=== PATIENT | female | born 1970 | race Caucasian/White ===

== ENCOUNTER 2017-02-28 14:12 | Emergency (ER) | payer SELFPAY ==
[2017-02-28] MEDS ORDERED: MORPHINE SULFATE 10 MG/ML INJ IV ONE ×4 (14:27→23:23)
--- NOTE | 2017-02-28 14:31 | ER Document Report ---
ED General - General Stated Complaint: SHORTNESS OF BREATH Notes: 46-year-old female with history of tobacco smoking and chronic bronchitis presents with right-sided chest and rib pain worse on inhalation for about 24 hours but is worsening. She hit her right chest while playing with her daughter last night had immediate pain but then woke up this morning with worsening shortness of breath after a coughing fit and increasing pain. She has been coughing up white sputum. Subjective fevers. Denies leg swelling long flights or external hormone use. No history of blood clots. I saw patient at the request of charge nurse that she met "sepsis criteria." TRAVEL OUTSIDE OF THE [place] IN LAST 30 DAYS: No - Related Data Allergies/Adverse Reactions: codeine [Codeine] Allergy (Intermediate, Verified 02/05/15 21:59) itching Past Medical History - Social History Smoking Status: Current Every Day Smoker Smoking Education Provided: Yes - The patient ED visit today was directly related to their abuse of tobacco. Family History: Reviewed & Not Pertinent GI Medical History: Reports: Hx Gastroesophageal Reflux Disease Psychiatric Medical History: Reports: Hx Attention Deficit Hyperactivity Disorder, Hx Depression Past Surgical History: Reports: Hx Section, Hx Orthopedic Surgery - KNEE SURGERY 2002, 2004 - Immunizations Immunizations up to date: Yes Hx Diphtheria, Pertussis, Tetanus Vaccination: Yes - 2005 Hx Pneumococcal Vaccination: 08/08/00 Review of Systems - Review of Systems Notes: REVIEW OF SYSTEMS GEN: Fever ENT: Denies sore throat, nasal discharge, ear pain EYES: Denies blurry vision, eye pain, discharge CV: Sided pleuritic chest pain RESP: Breath cough sputum GI: Denies abdominal pain, nausea, vomiting, diarrhea MSK: Denies joint pain/swelling, edema, SKIN: Denies rash, skin lesions LYMPH: Denies swollen glands/lymph nodes NEURO: Denies headache, focal weakness or numbness, dizziness PSYCH: Denies depression, suicidal or homicidal ideation PHYSICAL EXAMINATION General:To moderate respiratory distress Head: Atraumatic, normocephalic ENT: Mouth normal, oropharynx moist, no exudates or tonsillar enlargement Eyes: Conjunctiva normal, pupils equal, lids normal Neck: No JVD, supple, no guarding CVS: Normal rate, regular rhythm, no murmurs Resp: Moderate respiratory distress, shallow breathing, tachypnea, decreased breath sounds at right base. GI: Nondistended, soft, no tenderness to palpation, no rebound or guarding Ext: No deformities, no edema, normal range of motion in upper and lower ext Back: No CVA or midline TTP Skin: No rash, warm Lymphatic: No lymphadeopathy noted Neuro: Awake, alert. Face symmetric. GCS 15. Physical Exam - Vital signs Vitals: Pulse Ox 98 02/28/17 14:20 Course - Re-evaluation Re-evalutation: 02/28/17 14:30 Patient presents with right-sided pleuritic chest pain posttraumatic now with sputum fever tachycardia. Differential includes pneumonia, sepsis, pneumothorax , pneumomediastinum, rib contusion with splinting. Differential also includes 02/28/17 14:58 Reassessed patient. On further examination she has active track rodríguez on the right hand and does not attest to me that she is using heroin daily. Careful exam of the heart reveals a systolic murmur which she is not aware of. Chest x- ray looks clean but I will scan her for PE and she will be admitted for endocarditis rule out. Order vancomycin traction. In addition the patient attest to a reasonably heavy alcohol intake. I will give her Ativan for presumed alcohol withdrawal as well. Given that she has no clinical signs of heart failure or valve rupture I think she is appropriate to be admitted here for endocarditis rule out. 02/28/17 15:02 02/28/17 17:16 Vital signs are improved. Patient still requiring opioids for pain. Her CT does not show a pulmonary embolus but she does have some nodular densities and a pleural effusion concerning, in my opinion, for septic pulmonary emboli. She is already antibiotics. I do have some concern for heart failure given her CTs I will not give her a full 2 L of fluid. She was accepted by Dr. Pineda for attending Dr. Kilgore at [facility]. - Vital Signs Vital signs: Temp Pulse Resp BP Pulse Ox 25 H 115/85 98 02/28/17 15:03 02/28/17 15:03 02/28/17 14:22 - Laboratory Result Diagrams: 02/28/17 14:29 02/28/17 14:29 Laboratory results interpreted by me: 02/28/17 02/28/17 02/28/17 14:29 14:29 15:21 WBC 19.7 H RDW 15.4 H Seg Neutrophils % 83.5 H Lymphocytes % 9.3 L Absolute Neutrophils 16.5 H VBG pH 7.48 H VBG pCO2 32.7 L Sodium 134.7 L Carbon Dioxide 20 L BUN 5 L Glucose 143 H AST 43 H - Diagnostic Test Radiology reviewed: Image reviewed, Reports reviewed - Consults No standard instances Time consulted: 17:00 - Spoke with Dr. Girard, hospitalist who refused admission in the case that the patient needs cardiac surgery. Critical Care Note - Critical Care Note Total time excluding time spent on procedures (mins): 35 - The above patient is critically ill. Not including procedures, but including direct re-evaluations, speaking with patient and/or consultants, interpreting results, and documenting , I spent the total amount of minute listed listed above on critical care time
[2017-02-28 14:45] LABS: ABSOLUTE BASOPHILS # (AUTO) 0.1 10^3/uL (0.0-0.2); ABSOLUTE LYMPHOCYTES (AUTO) 1.8 10^3/uL (0.5-4.7); ABSOLUTE MONOCYTES (AUTO) 1.4 10^3/uL (0.1-1.4); ABSOLUTE NEUT (AUTO) 16.5 10^3/uL (1.7-8.2); BASOPHILS % (AUTO) 0.3 % (0-2); HEMATOCRIT 40.6 % (36.0-47.0); HEMOGLOBIN 13.9 g/dL (12.0-15.5); HGB HCT DIFFERENCE 1.1; LYMPHOCYTES % (AUTO) 9.3 % (13-45); MEAN CORPUSCULAR HEMOGLOBIN 27.8 pg (27.0-33.4); MEAN CORPUSCULAR HGB CONC 34.2 g/dL (32.0-36.0); MEAN CORPUSCULAR VOLUME 81 fl (80-97); MONOCYTES % (AUTO) 6.9 % (3-13); RED BLOOD COUNT 4.99 10^6/uL (3.72-5.28); RED CELL DISTRIBUTION WIDTH 15.4 % (11.5-14.0); SEGMENTED NEUTROPHILS % (AUTO) 83.5 % (42-78); WHITE BLOOD COUNT 19.7 10^3/uL (4.0-10.5)
[2017-02-28 14:49] LABS: PROTHROMBIN TIME 14.1 SEC (11.4-15.4)
[2017-02-28] MEDS ORDERED: NORMAL SALINE 1000 ML 1,000 ML IV ONE (14:49)
[2017-02-28] MEDS ORDERED: VANCOMYCIN HCL INJ 1000 MG VIAL IV ONE (15:00)
[2017-02-28] MEDS ORDERED: CEFTRIAXONE 1 GM/D5W RTU 50 ML IV ONE (15:00)
[2017-02-28] MEDS ORDERED: LORAZEPAM INJ 2 MG/1 ML VIAL IV ONE (15:01)
[2017-02-28 15:06] LABS: ALANINE AMINOTRANSFERASE 49 U/L (9-52); ALKALINE PHOSPHATASE 119 U/L (38-126); ANION GAP 13 (5-19); ASPARTATE AMINO TRANSFERASE 43 U/L (14-36); BILIRUBIN,DIRECT 0.4 mg/dL (0.0-0.4); BLOOD UREA NITROGEN 5 mg/dL (7-20); CALCIUM 8.8 mg/dL (8.4-10.2); CARBON DIOXIDE 20 mmol/L (22-30); CHLORIDE 102 mmol/L (98-107); CREATININE RESULT 0.57 mg/dL (0.52-1.25); GLUCOSE 143 mg/dL (75-110); POTASSIUM 3.9 mmol/L (3.6-5.0); SODIUM 134.7 mmol/L (137-145); TOTAL PROTEIN 7.6 g/dL (6.3-8.2)
--- NOTE | 2017-02-28 15:25 | RADIOLOGY REPORT (SQ) ---
EXAM DESCRIPTION: CHEST SINGLE VIEW COMPLETED DATE/TIME: 02/28/2017 3:08 pm REASON FOR STUDY: bed 13 sepsis protocol COMPARISON: 09/19/2014 EXAM PARAMETERS: NUMBER OF VIEWS: One view. TECHNIQUE: Single frontal radiographic view of the chest acquired. RADIATION DOSE: NA LIMITATIONS: None. FINDINGS: LUNGS AND PLEURA: No opacities, masses or pneumothorax. No pleural effusion. MEDIASTINUM AND HILAR STRUCTURES: No masses. Contour normal. HEART AND VASCULAR STRUCTURES: Heart normal in size. Normal vasculature. BONES: No acute findings. HARDWARE: None in the chest. OTHER: No other significant finding. IMPRESSION: NO ACUTE RADIOGRAPHIC FINDING IN THE CHEST. TECHNICAL DOCUMENTATION: JOB ID: [id number]
[2017-02-28 15:35] LABS: VENOUS BLOOD BASE EXCESS 1.3 mmol/L; VENOUS BLOOD PCO2 32.7 mmHg (35-63); VENOUS BLOOD PH 7.48 (7.30-7.42)
[2017-02-28] MEDS ORDERED: FENTANYL CITRATE INJ/PF 100 MCG/2 ML AMPUL IV ONE (16:07)
--- NOTE | 2017-02-28 16:49 | RADIOLOGY REPORT (SQ) ---
EXAM DESCRIPTION: CTA CHEST COMPLETED DATE/TIME: 02/28/2017 4:22 pm REASON FOR STUDY: tachy, pl CP, r/o PE COMPARISON: 11/18/2013. TECHNIQUE: CT scan of the chest performed using helical scanning technique with dynamic intravenous contrast injection. Images reviewed with lung, soft tissue and bone windows. Reconstructed coronal and sagittal MPR images reviewed. Additional 3 dimensional post-processing performed to develop Maximal Intensity Projection images (LA P). All images stored on PACS. All CT scanners at this facility use dose modulation, iterative reconstruction, and/or weight based d osing when appropriate to reduce radiation dose to as low as reasonably achievable (ALARA). [facility]: Dose Right [facility]: CareDose [facility]: Dose Right [facility]: Teradose 4D [facility]: [employer] CONTRAST TYPE AND DOSE: contrast/concentration: Isovue 370.00 mg/ml; Total Contrast Delivered: 66.0 ml; Total Saline Delivered: 96.0 ml RENAL FUNCTION: BUN 5 creatinine 0.57. RADIATION DOSE: Up-to-date CT equipment and radiation dose reduction techniques were employed. CTDIv ol: 14.3 - 19.8 mGy. DLP: 460 mGy-cm. . LIMITATIONS: None. FINDINGS: LUNGS AND PLEURA: Minimal right pleural effusion. 7 mm nodular density in the subpleural posterior right lower lobe (series 4, image 32). 5 mm nodular density in the subpleural left upper l obe (series 4, image 44). No lobar infiltrates. AORTA AND GREAT VESSELS: No aneurysm or dissection. HEART: No pericardial effusion. PULMONARY ARTERIES: No emboli visualized in the main pulmonary arteries or the segmental branches. HILAR AND MEDIASTINAL STRUCTURES: No identified masses or abnormal nodes. HARDWARE: None in the chest. UPPER ABDOMEN: No significant findings. Limited exam. THYROID AND OTHER SOFT TISSUES: No masses. No adenopathy. BONES: No acute or significant finding. 3D MIPS: Confirm above findings. OTHER: No other significant finding. IMPRESSION: 1. NORMAL CTA OF THE CHEST. NO PULMONARY EMBOLI. 2. MINIMAL RIGHT PLEURAL EFFUSION. SMALL NODULAR DENSITIES DESCRIBED ABOVE. RECOMMEND FOLLOW-UP CT IN 3-6 MONTHS. COMMENT: [facility] CRITERIA FOR FOLLOW-UP OF PULMONARY NODULES Incidentally detected new nodules in persons 35 or older. HIGH RISK: History of smoking or other known risk factors. 6-8mm multiple solid nodules: LOW RISK: CT 3-6 mo; then consider CT 18-24 mo. HIGH RISK: CT 3-6 mo; t hen CT 18-24 mo. TECHNICAL DOCUMENTATION: JOB ID: [id number] Quality ID # [id number]: Final reports with documentation of one or more dose reduction techniques (e.g., Au tomated exposure control, adjustment of the mA and/or kV according to patient size, use of iterative reconstruction technique) 2010 [employer]- All Rights Reserved
[2017-02-28] MEDS ORDERED: MORPHINE SULFATE IR 30 MG TABLET PO ONE (18:05)
[2017-02-28 18:23] LABS: APPEARANCE,URINE CLEAR; BILIRUBIN,URINE NEGATIVE (NEGATIVE); GLUCOSE, URINE NEGATIVE (NEGATIVE); KETONES,URINE NEGATIVE (NEGATIVE); LEUKOCYTE ESTERASE,URINE NEGATIVE (NEGATIVE); NITRITE,URINE POSITIVE (NEGATIVE); PROTEIN,URINE NEGATIVE (NEGATIVE); URINE SPECIFIC GRAVITY 1.054; UROBILINOGEN,URINE NEGATIVE mg/dL (<2.0)
[2017-02-28] MEDS ORDERED: MORPHINE SULFATE IR 15 MG TABLET PO ONE (18:28)
[2017-02-28] MEDS ORDERED: KETOROLAC TROMETHAMINE INJ/PF 30 MG/1 ML SDV IV ONE (21:33)
[2017-02-28] MEDS ORDERED: ACETAMINOPHEN 325 MG TABLET PO ONE (21:42)
[2017-03-01] MEDS ORDERED: NICOTINE 14 MG/24 HR PATCH.TD24 TD ONE (01:09)
[2017-03-01] MEDS ORDERED: VANCOMYCIN HCL INJ 1000 MG VIAL IV ONE (03:00)
[2017-03-01] MEDS: MORPHINE SULFATE 10 MG/ML INJ IV PRN ×4 (03:58→10:05)
[2017-03-01] MEDS ORDERED: KETOROLAC TROMETHAMINE INJ/PF 30 MG/1 ML SDV IV ONE (11:01)
[2017-03-01] MEDS ORDERED: TRAMADOL HCL 50 MG TABLET PO ONE (12:33)
--- NOTE | 2017-03-01 12:51 | EKG REPORT ---
SEVERITY:- BORDERLINE ECG - SINUS TACHYCARDIA PROBABLE LEFT ATRIAL ABNORMALITY : Confirmed by: Elisa Montague MD 01-Mar-2017 12:50:49
[2017-03-01] MEDS ORDERED: MORPHINE SULFATE 10 MG/ML INJ IV PRN (19:38)
[2017-03-01 20:01] VITALS: BP 154/95
== END 2017-03-01 20:10 ==
LOC: ER 14:12
DX: I26.90 Septic pulmonary embolism without acute cor pulmonale (principal); R07.81 Pleurodynia; R06.02 Shortness of breath; R01.1 Cardiac murmur, unspecified; R05 Cough; R00.0 Tachycardia, unspecified; R50.9 Fever, unspecified; F17.210 Nicotine dependence, cigarettes, uncomplicated; Z88.5 Allergy status to narcotic agent; Z72.89 Other problems related to lifestyle
CPT/HCPCS: 93005; 96376; 99291; 96375; 96365; 96366; 96368; 36415; 87040; 87086; 85025; 85610; 87088; 80053; 81001; 84484; 87186; 82803; 83605; 71010; 71275; 93010; J3010; J1885 ×2; J2270 ×2; J2060; J7030; J3370 ×2; J0696

== ENCOUNTER 2018-10-11 16:01 | Emergency (ER) | payer SELFPAY ==
--- NOTE | 2018-10-11 17:19 | ER Document Report ---
ED General - General Chief Complaint: Near Syncope Stated Complaint: DIZZINESS Time Seen by Provider: 10/11/18 16:50 Notes: Patient is a 47-year-old female who presents to the emergency department with a chief complaint of dizziness and a near syncopal episode. She also states that she has some back pain in her thoracic spine near T3-T4. She states that her back pain is very severe and it has radiated to all over her body. She is unsure whether or not she has had a fever but felt feverish. The pain goes from her spine and radiates down her back muscles. She denies any loss of bladder or bowel function. She does admit to IV drug abuse and last used heroin about 7-8 hours ago. TRAVEL OUTSIDE OF THE [place] IN LAST 30 DAYS: No - Related Data Allergies/Adverse Reactions: codeine [Codeine] Allergy (Intermediate, Verified 02/05/15 21:59) itching Past Medical History - Social History Smoking Status: Current Every Day Smoker Drug Abuse: Heroin Family History: Reviewed & Not Pertinent Patient has suicidal ideation: No Patient has homicidal ideation: No Renal/ Medical History: Denies: Hx Peritoneal Dialysis GI Medical History: Reports: Hx Gastroesophageal Reflux Disease Psychiatric Medical History: Reports: Hx Attention Deficit Hyperactivity Disorder, Hx Depression Past Surgical History: Reports: Hx Section, Hx Orthopedic Surgery - KNEE SURGERY 2002, 2004 - Immunizations Immunizations up to date: Yes Hx Diphtheria, Pertussis, Tetanus Vaccination: Yes - 2005 Hx Pneumococcal Vaccination: 08/08/00 Review of Systems - Review of Systems Notes: REVIEW OF SYSTEMS: CONSTITUTIONAL : See HPI EENT: Denies eye, ear, throat, or mouth pain, discharge, or symptoms. Denies nasal or sinus congestion. CARDIOVASCULAR: Denies chest pain. RESPIRATORY: Denies shortness of breath, cough, congestion, difficulty breathing, or wheezing. GASTROINTESTINAL: Denies nausea, vomiting, and diarrhea. Denies abdominal pain. Denies constipation. GENITOURINARY: Denies difficulty urinating, burning, blood in urine, urgency or frequency. MUSCULOSKELETAL: See HPI SKIN: See HPI HEMATOLOGIC : Denies easy bruising or bleeding. LYMPHATIC: Denies swollen, painful, enlarged glands. NEUROLOGICAL: Denies no numbness or tingling denies weakness. Denies headache. Denies altered mental status. Denies alteration in speech. PSYCHIATRIC: Denies stress, anxiety, alteration in sleep patterns, or depression. All other systems reviewed and negative. Physical Exam - Vital signs Vitals: Resp 20 10/11/18 16:04 - Notes Notes: PHYSICAL EXAMINATION: GENERAL: Appears ill, mild distress. HEAD: Normocephalic, atraumatic. EYES: PERRL, conjunctiva normal, all extraocular movements intact, sclera nonicteric ENT: Moist mucous membranes. NECK: Supple, no noticeable swelling, redness, rash. Normal range of motion. LUNGS: Equal breath sounds bilaterally and clear to auscultation. No wheezes rales or rhonchi. CARDIOVASCULAR: Tachycardia. Radial pulses 2+, normal. ABDOMEN: Normoactive bowel sounds. Soft, nontender, no guarding, no rebound tenderness, and no masses palpated. EXTREMITIES: Normal strength and range of motion, no edema. No cyanosis. NEUROLOGICAL: Moves all extremities upon command. Strength 5/5 in all extremities. PSYCH: Normal mood, normal affect. SKIN: Warm, dry. Track rodríguez noted on upper extremities from drug use. Course - Re-evaluation Re-evalutation: 10/11/18 17:30 I am concerned that the patient may have a epidural abscess due to her tachycardia and back pain. She needs to be sent to CT to rule out an epidural abscess. Although the patient did not tell me, she does have history of endocarditis. I am concerned that her continued heroin use may be causing her to go septic and possibly have another episode of endocarditis. 10/11/18 18:20 I been informed by the staff that the patient eloped. I am concerned that she may not do well at home because she was tachycardic in the 130s-140s here in the emergency department. She also does have a leukocytosis on her labs. Unfortunately not all her labs are back before I was able to speak with her, nor was her CT done. I was unable to speak with the patient before she left. - Vital Signs Vital signs: Temp Pulse Resp BP Pulse Ox 98.2 F 102 H 21 H 168/85 H 98 10/11/18 16:11 10/11/18 16:11 10/11/18 18:01 10/11/18 18:00 10/11/18 18:01 - Laboratory Result Diagrams: 10/11/18 17:09 10/11/18 18:10 Laboratory results interpreted by me: 10/11/18 10/11/18 17:09 18:10 WBC 12.1 H RBC 5.32 H MCV 78 L MCH 25.8 L RDW 15.6 H Seg Neuts % (Manual) 92 H Lymphocytes % (Manual) 5 L Monocytes % (Manual) 2 L Abs Neuts (Manual) 11.1 H Chloride 109 H AST 98 H Alkaline Phosphatase 127 H Creatine Kinase 24 L Discharge - Discharge Clinical Impression: Back pain Qualifiers: Back pain location: thoracic back pain Chronicity: acute Back pain laterality: midline Qualified Code(s): M54.6 - Pain in thoracic spine Condition: Critical Disposition: AGAINST MEDICAL ADVICE
[2018-10-11] MEDS ORDERED: NORMAL SALINE 1000 ML 1,000 ML IV ONE (17:28)
[2018-10-11 17:39] LABS: HEMATOCRIT 41.6 % (36.0-47.0); HEMOGLOBIN 13.7 g/dL (12.0-15.5); MEAN CORPUSCULAR HEMOGLOBIN 25.8 pg (27.0-33.4); MEAN CORPUSCULAR VOLUME 78 fl (80-97); PLATELET COUNT 162 10^3/uL (150-450); RED BLOOD COUNT 5.32 10^6/uL (3.72-5.28); RED CELL DISTRIBUTION WIDTH 15.6 % (11.5-14.0); WHITE BLOOD COUNT 12.1 10^3/uL (4.0-10.5)
[2018-10-11] MEDS ORDERED: MORPHINE SULFATE 10 MG/ML INJ SUBCUT ONE (17:51)
[2018-10-11 18:03] VITALS: BP 168/85
[2018-10-11 18:04] LABS: ABSOLUTE LYMPHOCYTES# (MANUAL) 0.6 10^3/uL (0.5-4.7); ABSOLUTE MONOCYTES # (MANUAL) 0.2 10^3/uL (0.1-1.4); ABSOLUTE NEUTROPHILS# (MANUAL) 11.1 10^3/uL (1.7-8.2); BASOPHILS % (MANUAL) 0 % (0-2); EOSINOPHILS % (MANUAL) 1 % (0-6); LYMPHOCYTES % (MANUAL) 5 % (13-45); MONOCYTES % (MANUAL) 2 % (3-13); SEGMENTED NEUTROPHILS % (MAN) 92 % (42-78); TOTAL CELLS COUNTED 100
[2018-10-11 18:05] LABS: ANISOCYTOSIS 1+; HYPOCHROMASIA SLIGHT; PLATELET COMMENT ADEQUATE; POIKILOCYTOSIS SLIGHT; TOXIC GRANULATION SLIGHT
[2018-10-11 19:13] LABS: ALANINE AMINOTRANSFERASE 28 U/L (9-52); ALBUMIN 3.6 g/dL (3.5-5.0); ALKALINE PHOSPHATASE 127 U/L (38-126); ANION GAP 6 (5-19); ASPARTATE AMINO TRANSFERASE 98 U/L (14-36); BILIRUBIN,DIRECT 0.4 mg/dL (0.0-0.4); BILIRUBIN,TOTAL 0.5 mg/dL (0.2-1.3); BLOOD UREA NITROGEN 11 mg/dL (7-20); CALCIUM 8.9 mg/dL (8.4-10.2); CARBON DIOXIDE 25 mmol/L (22-30); CHLORIDE 109 mmol/L (98-107); CREATINE KINASE 24 U/L (30-135); GLUCOSE 105 mg/dL (75-110); POTASSIUM 3.8 mmol/L (3.6-5.0); SODIUM 140.2 mmol/L (137-145); TOTAL PROTEIN 6.8 g/dL (6.3-8.2)
[2018-10-11 19:27] LABS: CREATINE KINASE MB < 0.22 ng/mL (<4.55); TROPONIN I < 0.012 ng/mL
== END 2018-10-11 18:18 | disposition left against medical advice (07) ==
LOC: ER 16:01
DX: M54.6 Pain in thoracic spine (principal); R55 Syncope and collapse; R00.0 Tachycardia, unspecified; D72.829 Elevated white blood cell count, unspecified; F11.10 Opioid abuse, uncomplicated; F17.200 Nicotine dependence, unspecified, uncomplicated; Z86.79 Personal history of other diseases of the circulatory system; Z88.5 Allergy status to narcotic agent; Z53.20 Procedure and treatment not carried out because of patient's decision for unspecified reasons
CPT/HCPCS: 99284; 96372; 96360; 36415; 87040; 82553; 82550; 85025; 87077; 80053; 84484; 87186; J2270; J7030